=== PATIENT | male | born 1945 | race African-American/Black ===

== ENCOUNTER 2017-02-12 09:53 | Outpatient (CLI) | payer OTHER, MEDICARE ==
[2017-02-12 11:56] LABS: #Basophils 0.1 thou/uL (0.0-0.2); #Eosinphils 0.2 thou/uL (0.0-0.7); #Lymphocytes 1.8 thou/uL (1.20-3.40); #Monocytes 0.6 thou/uL (0.11-0.59); #Neutrophils 4.2 thou/uL (1.40-6.50); %Basophils 1.2 % (0.0-1.0); %Eosinophils 2.7 % (0.0-10.0); %Lymphocytes 26.1 % (21.0-51.0); %Monocytes 8.6 % (0.0-10.0); %Neutrophils 61.4 % (42.0-75.0); Hemoglobin 14.5 g/dL (14.0-18.0); Mean Corpuscular HGB CONC 34.4 g/dL (32.0-36.0); Mean Corpuscular Hemoglobin 32.2 pg (27.0-31.0); Mean Corpuscular Volume 93.8 fl (80.0-94.0); Mean Platelet Volume 8.5 fL (7.4-10.4); Platelet Count 187 thou/uL (130-400); RBC Distribution Width 12.2 % (11.5-14.5); Red Blood Cell (RBC) Count 4.49 mill/uL (4.70-6.10); White Blood Cell (WBC) Count 6.9 thou/uL (4.8-10.8)
[2017-02-12 15:08] LABS: ALT (SGPT) 24 U/L (8-55); AST (SGOT) 27 U/L (5-34); Albumin 4.2 g/dL (3.4-4.8); Alkaline Phosphatase 49 U/L (40-150); Anion Gap 16 mmol/L (10-20); BUN (Urea Nitrogen) 19 mg/dL (8.4-25.7); Bilirubin, Total 0.5 mg/dL (0.2-1.2); Calc. Creatinine Clearance 0 mL/min (70-130); Calcium 9.4 mg/dL (7.8-10.44); Carbon Dioxide 23 mmol/L (23-31); Cardiac Risk 2.7 (Less than 4.5); Chloride 109 mmol/L (98-107); Cholesterol 133 mg/dl (< 200 Desired); Estimated GFR-MDRD 73; Glucose 88 mg/dL (83-110); HDL Cholesterol 50 mg/dL (>60 Neg Risk); LDL Cholesterol, Calculated 73 mg/dL; Potassium 4.3 mmol/L (3.5-5.1); Protein, Total 7.2 g/dL (5.8-8.1); Sodium 144 mmol/L (136-145); Triglycerides 52 mg/dL (Less than 150)
[2017-02-12 15:14] LABS: Hemoglobin A1c 7.4 % (4.0-6.0)
== END 2017-02-12 09:54 ==
LOC: HPCALD 09:53
PROVIDERS: ATTEND Family Medicine
DX: E78.5 Hyperlipidemia, unspecified (principal); E11.9 Type 2 diabetes mellitus without complications; I10 Essential (primary) hypertension
CPT/HCPCS: 36415; 80053; 80061; 83036; 85025

== ENCOUNTER 2022-05-30 11:32 | Outpatient (CLI) | payer MEDICARE ==
[2022-05-30 12:03] LABS: Anion Gap 12 mmol/L (10-20); BUN (Urea Nitrogen) 17 mg/dL (8.4-25.7); Calc. Creatinine Clearance 0 mL/min (70-130); Calcium 9.4 mg/dL (7.8-10.44); Carbon Dioxide 24 mmol/L (23-31); Chloride 106 mmol/L (98-107); Estimated GFR 62; Glucose 226 mg/dL (83-110); Potassium 4.3 mmol/L (3.5-5.1); Sodium 138 mmol/L (136-145)
== END 2022-05-30 11:33 | disposition home or self-care (01) ==
LOC: BURLAB 11:32
PROVIDERS: ATTEND Internal Medicine Cardiovascular Disease
DX: I25.5 Ischemic cardiomyopathy (principal)
CPT/HCPCS: 36415; 80048

== ENCOUNTER 2025-05-27 13:36 | Emergency (ER) | payer MEDICARE ==
[2025-05-27 14:12] LABS: Hematocrit 38.0 % (42.0-52.0); Hemoglobin 13.8 g/dL (14.0-18.0); Mean Corpuscular Hemoglobin 32.2 pg (27.0-31.0); Mean Corpuscular Volume 88.3 fl (78.0-98.0); Platelet Count 174 10x3/uL (130-400); Red Blood Cell (RBC) Count 4.30 mill/uL (4.70-6.10); White Blood Cell (WBC) Count 26.4 10x3/uL (4.8-10.8)
[2025-05-27 14:25] LABS: ALT (SGPT) 12 U/L (Less than 45); AST (SGOT) 15 U/L (11-34); Albumin 3.8 g/dL (3.1-4.5); Alkaline Phosphatase 52 U/L (40-110); Anion Gap 18 mmol/L (10-20); BUN (Urea Nitrogen) 19 mg/dL (8.4-25.7); Bilirubin, Total 1.6 mg/dL (0.3-1.2); Calc. Creatinine Clearance 0 mL/min (70-130); Calcium 9.2 mg/dL (7.8-10.44); Carbon Dioxide 19 mmol/L (23-31); Chloride 104 mmol/L (98-107); Globulin 3.9 g/dL (2.4-3.5); Glucose 246 mg/dL (83-110); Potassium 4.3 mmol/L (3.5-5.1); Sodium 137 mmol/L (136-145)
[2025-05-27 14:26] LABS: Troponin I Less than 0.010 ng/mL (< 0.028)
[2025-05-27 14:29] LABS: Glucose, Urine (Dipstick) 250 mg/dL (Negative); Leukocyte Small (Negative); Protein, Urine (Dipstick) 30 mg/dL (Neg-Trace); Specific Gravity, Urine 1.025 (1.005-1.030)
[2025-05-27 14:33] LABS: MDiff Complete? YES
[2025-05-27 14:36] LABS: Bacteria/HPF 3+ HPF (None Seen); CAUTI Indications for Culture Dysuria,urgency,freq; RBC/HPF 0-3 HPF (0-3); WBC/HPF 21-50 HPF (0-3)
[2025-05-27 14:37] LABS: Urine Culture Reflex Yes Yes
[2025-05-27] MEDS ORDERED: cefTRIAXone (ROCEPHIN) 1 GM VIAL ONE (15:37)
== END 2025-05-27 16:22 | disposition short-term general hospital (02) ==
LOC: BURERS 13:36
DX: K81.0 Acute cholecystitis (principal); N39.0 Urinary tract infection, site not specified; E11.9 Type 2 diabetes mellitus without complications; Z79.84 Long term (current) use of oral hypoglycemic drugs
CPT/HCPCS: 36415; 71260; 74177; 80053; 81001; 83690; 83880; 84484; 85025; 87040; 87077; 87086; 93005; 96365; J0696